=== PATIENT | male | born 1980 | race African-American/Black ===

== ENCOUNTER 2019-10-23 18:48 | Emergency (ER) | payer OTHER, SELFPAY ==
--- NOTE | ~2019-10-23 | XR_ITS ---
EXAMINATION: XR chest 2V 10/23/2019 19:55 INDICATION: Midsternal chest pain. Vomiting blood. Hypertension and chest pain. PROCEDURE: 2 view chest COMPARISON: No prior studies for comparison. FINDINGS: The lungs are clear. The cardiomediastinal silhouette is within normal limits. There are no pleural effusions. There is no pneumothorax suspected. IMPRESSION: 1: NO ACUTE CARDIOPULMONARY DISEASE. Reviewed, dictated and finalized at location A. MING PROFESSOR
--- NOTE | 2019-10-23 18:49 | ECG_ITS ---
Measurements Intervals [place] Rate: 86 P: 77 PA: 159 QRS: 83 QRSD: 90 T: 61 QT: 338 QTc: 406 Interpretive Statements SINUS RHYTHM POSSIBLE LEFT ATRIAL ENLARGEMENT ST ELEVATION CONSISTENT WITH INJURY, PERICARDITIS, OR EARLY REPOLARIZATION ABNORMAL ECG Electronically Signed On 10-24-2019 6:27:34 [facility] SPECIALIST by Jimi Mariee D.O.
[2019-10-23 18:53] VITALS: BP 136/71; PULSE 80; RESP 20; TEMP 37.1; O2SAT 100
[2019-10-23 19:07] LABS: Basophils Percent Auto 0.3 % (0.2-1.2); Eosinophils Percent Auto 0.9 % (0-4.4); Hematocrit 43.1 % (42.0-52.0); Hemoglobin 14.6 g/dL (14.0-18.0); Lymphocytes Absolute Auto 1.58 K/mm3 (0.9-3.2); Lymphocytes Percent Auto 48.2 % (18.3-44.2); Mean Corpuscular HGB Conc 33.9 g/dl (32-36); Mean Corpuscular Hemoglobin 27.2 pg (26-34); Mean Corpuscular Volume 80.3 fl (80-100); Mean Platelet Volume 10.3 fl (7.4-10.4); Monocytes Absolute Auto 0.3 K/mm3 (0.1-0.6); Monocytes Percent Auto 10.1 % (2.6-8.5); Neutrophils Absolute Auto 1.3 K/mm3 (1.3-6.7); Neutrophils Percent Auto 40.5 % (45.5-73.1); Platelet Count Result 230 k/mm3 (150-375); Red Blood Count 5.37 M/mm3 (4.6-6.20); Red Cell Distribution Width 14.1 % (11.5-14.5); White Blood Count 3.3 K/mm3 (4.5-10.0)
[2019-10-23 19:15] LABS: Blood Urea Nitrogen 9 mg/dL (9-20); Calcium 9.6 mg/dL (8.4-10.2); Carbon Dioxide 29 mmol/L (22-30); Chloride 99 mmol/L (98-107); Estimated Glomerular Filt Rate > 60; Glucose 92 mg/dL (75-110); Potassium 4.2 mmol/L (3.4-5.0); Sodium 139 mmol/L (137-145)
[2019-10-23 19:20] LABS: Partial Thromboplastin Time 23.9 SECONDS (22.3-36.8)
[2019-10-23 19:27] LABS: Troponin I < 0.012 ng/mL (0.000-0.034)
--- NOTE | 2019-10-23 22:30 | ED.GENADULT ---
HPI - General Adult General Chief complaint: Chest Pain Stated complaint: Hi BP, Chest Pain Time Seen by Provider: 10/23/19 22:27 Source: patient and RN notes reviewed Mode of arrival: EMS Limitations: no limitations History of Present Illness HPI narrative: Pt is a 39 y/o male who presents to the ED via EMS with c/o multiple complaints. He notes that he has had diarrhea for the past 3-4 days. Pt states that he has also had a headache, generalized weakness, chest pain, diffuse ABD pain, sore throat, and a productive cough. He notes that he vomited earlier today. Pt states that his BP has been recently elevated. He notes that he has been around sick contacts recently. EMS administered 3 NTG, 324 mg ASA, and Zofran while in route to the ED. MD complaint: Multiple Complaints Onset (ago): day(s) (several) Associated symptoms: chest pain, cough (productive), headaches, nausea/vomiting, weakness (generalized) and other (diffuse ABD pain; diarrhea; sore throat) Treatments prior to arrival: aspirin and other (NTG; Zofran) Related Data Allergies Allergy/AdvReac Type Severity Reaction Status Date / Time No Known Allergies Allergy Verified 10/24/19 00:27 Review of Systems Review of Systems: All systems reviewed & are unremarkable except as noted in HPI and below Constitutional: Constitutional: Reports headache(s) and Reports weakness (generalized) ENT: Reports sore throat Cardiovascular: Cardiovascular: Reports chest pain Respiratory: Respiratory: Reports cough (productive) Gastrointestinal: Gastrointestinal: Reports abdominal pain (diffuse ABD pain), Reports diarrhea, Reports nausea and Reports vomiting PMFSH Past Medical History Medical History Medical history unknown Surgical History Surgical History No significant past surgical history Social History Social History Smoking status: Unknown if ever smoked Gender identity (if verbalized by the patient): Male Exam Const: General: healthy appearing and no acute distress Nutritional Appearance: well nourished Resp: Effort & Inspection: normal respiratory effort Auscultation: clear to auscultation bilaterally Cardio: Rate: regular rate Rhythm: regular rhythm Heart sounds: no murmurs GI: GI Palp: Yes Soft to palpation and Yes Tenderness to palpation present (GI) (epigastric tenderness) Auscultation: normal bowel sounds Back/Spine/Pelvis: Back: other (Full ROM) Skin: General skin exam: normal color, dry skin and other (warm) Neuro: General: patient oriented x3 (alert) Speech: normal speech Extrem: General: full ROM Psych: Mental Status: mental status grossly normal Affect: normal affect Course Vital Signs Vital signs: Vital Signs Temperature 37.1 C 10/23/19 18:53 Pulse Rate 80 10/23/19 18:53 Respiratory Rate 20 10/23/19 18:53 Blood Pressure 136/71 10/23/19 18:53 Pulse Oximetry 100 10/23/19 18:53 Temperature 37.1 C 10/23/19 18:53 Pulse Rate 111 H 10/24/19 00:30 Respiratory Rate 30 H 10/24/19 00:30 Blood Pressure 132/75 10/24/19 00:30 Pulse Oximetry 98 10/24/19 00:30 Medical Decision Making Medical Records Medical records reviewed: Yes I reviewed the patient's medical records. Vital Signs Vital Signs: Vital Signs Temperature 37.1 C 10/23/19 18:53 Pulse Rate 80 10/23/19 18:53 Respiratory Rate 20 10/23/19 18:53 Blood Pressure 136/71 10/23/19 18:53 Pulse Oximetry 100 10/23/19 18:53 Temperature 37.1 C 10/23/19 18:53 Pulse Rate 111 H 10/24/19 00:30 Respiratory Rate 30 H 10/24/19 00:30 Blood Pressure 132/75 10/24/19 00:30 Pulse Oximetry 98 10/24/19 00:30 Lab Data Lab results reviewed: Yes I reviewed the patient's lab results. Result diagrams: 10/23/19 18:58 10/23/19 18:58 Labs: Lab Results
[2019-10-23 23:00] VITALS: O2SAT 100
[2019-10-23] MEDS: SODIUM CHLORIDE 0.9% IV 1,000 ML 999 ML IV CONT (23:03)
[2019-10-23] MEDS: BELLADONNA ALK/PHENOB ELIX 10 ML, MAG HYDROX/ALUMINUM HYD/SIMETH 30 ML, LIDOCAINE HCL 2... PO (23:05)
[2019-10-23] MEDS: METOCLOPRAMIDE HCL INJ 10 MG/2 ML VIAL IV PUSH (23:05)
[2019-10-23 23:11] LABS: Troponin I < 0.012 ng/mL (0.000-0.034)
[2019-10-23 23:59] VITALS: BP 143/67; PULSE 98; RESP 25; O2SAT 99
[2019-10-24 00:30] VITALS: BP 132/75; PULSE 111; RESP 30; O2SAT 98
== END 2019-10-24 00:30 | disposition home or self-care (01) ==
PROVIDERS: Emergency Provider Emergency Medicine
DX: R10.13 Epigastric pain (principal)
CPT/HCPCS: 36415; 71046; 80048; 84484; 85025; 85610; 85730; 93005; 96361; 96374; 99284; A9270; J2765; J7030

== ENCOUNTER 2021-07-12 08:25 | Outpatient (CLI) | payer OTHER, SELFPAY ==
--- NOTE | ~2021-07-12 | US_ITS ---
EXAMINATION: US thyroid DATE: 07/12/2021 08:52 INDICATION: Hyperthyroidism. TECHNIQUE: Multiple ultrasound images of the thyroid were obtained. COMPARISON: None. FINDINGS: The right thyroid lobe measures 5.9 x 1.8 x 2.0 cm. The left thyroid lobe measures 4.8 x 1.3 x 1.6 c m. There is normal echotexture and echogenicity throughout the thyroid gland. No discrete nodules id entified. The thyroid is diffusely hypervascular. IMPRESSION: 1. Thyroid hypervascularity, which may be seen with Graves' disease. Correlate with thyroid function tests. Reviewed, dictated and finalized at location A. NESS SYSTEM MANAGER
== END 2021-07-12 08:26 | disposition home or self-care (01) ==
PROVIDERS: PCP Internal Medicine; Visit Provider Internal Medicine
DX: E05.90 Thyrotoxicosis, unspecified without thyrotoxic crisis or storm (principal)
CPT/HCPCS: 76536